=== PATIENT | male | born 1995 | race Caucasian/White ===

== ENCOUNTER 2017-03-10 11:11 | Emergency (ER) | payer MEDICAID ==
[2017-03-10 11:54] VITALS: BP 126/76
--- NOTE | 2017-03-10 11:57 | ED Physician Chart ---
Chief Complaint/HPI - Patient Information Date Seen:: 03/10/17 Time Seen:: 11:42 Chief Complaint:: head lac History of Present Illness:: 1 hr ago was at home and a metal pole fell and hit top of head. no loc. no JOE now. no n/v/d. no vision change. no neck pain. ok rom neck wo pain. has lac at parietal/occiput region. unsure of last dtet but did [place] up [place] and attended school [place]. Allergies:: Allergies Allergy/AdvReac Type Severity Reaction Status Date / Time No Known Allergies Allergy Verified 03/10/17 11:20 Vitals:: Vital Signs - 8 hr 03/10/17 03/10/17 11:25 11:26 Temp 98.5 F HR 74 RR 16 BP 126/76 126/76 O2 Sat % 98 Historian:: Patient Review of Systems - Review of Systems General/Constitutional: No fever, No chills, No weight loss, No weakness, No diaphoresis, No edema, No loss of appetite Skin: No skin lesions, No rash, No bruising Head: No headache, No light-headedness Eyes: No loss of vision, No pain, No diplopia ENT: No earache, No nasal drainage, No sore throat, No tinnitus Neck: No neck pain, No swelling, No thyromegaly, No stiffness, No mass noted Cardio Vascular: No chest pain, No palpitations, No PND, No orthopnea, No edema Pulmonary: No SOB, No cough, No sputum, No wheezing GI: No nausea, No vomiting, No diarrhea, No pain, No melena, No hematochezia, No constipation, No hematemesis G/U: No dysuria, No frequency, No hematuria Musculoskeletal: No bone or joint pain, No back pain, No muscle pain Endocrine: No polyuria, No polydipsia Psychiatric: No prior psych history, No depression, No anxiety, No suicidal ideation Hematopoietic: No bruising, No lymphadenopathy Allergic/Immuno: No urticaria, No angioedema Neurological: No syncope, No focal symptoms, No weakness, No paresthesia, No headache, No seizure, No dizziness, No confusion, No vertigo Past Medical History - Past Medical History Past Medical History: No significant medical hx Social History: No Alcohol Medication: Reviewed Family Medical History - Family Member Mother Hx Family Cancer: No Hx Family Congestive Heart Failure: No Hx Family Diabetes: No Hx Family Seizures: No Hx Family AIDS: No Hx Family HIV: No Hx Family COPD: No Hx Family Hepatitis: No Hx Family Psychiatric Problems: No Physical Exam - Physical Examination General/Constitutional: Awake, Well-developed, well-nourished, Alert, No distress, GCS 15, Non-toxic appearing, Ambulatory Other Head comments:: lac at parietal/occipital jxn about 4 cm horrizontal shallow lac w no contamination nor deep structure injury. no skull stepoff. Eyes: Lids, conjuctiva normal, PERRL, EOMI Skin: Nl inspection, No rash, No skin lesions, No ecchymosis, Well hydrated, No lymphadenopathy ENMT: External ears, nose nl, Nasal exam nl, Lips, teeth, gums nl Neck: Nontender, Full ROM w/o pain, No JVD, No nuchal rigidity, No bruit, No mass, No stridor Respiratory: Nl effort/Exclusion, Clear to Auscultation, No Wheeze/Rhonchi/Rales Cardio Vascular: RRR, No murmur, gallop, rubs, NL S1 S2 GI: No tenderness/rebounding/guarding, No organomegaly, No hernia, Normal BS's, Nondistended, No mass/bruits, No McBurney tenderness : No CVA tenderness Extremities: No tenderness or effusion, Full ROM, normal strength in all extremities, No edema, Normal digits & nails Neuro/Psych: Alert/oriented, DTR's symmetric, Normal sensory exam, Normal motor strength, Judgement/insight normal, Mood normal, Normal gait, No focal deficits Misc: normal gait, Normal back, No paraspinal tenderness Assessment Location:: ocipital/parietaL JXN Laceration Type:: Simple Wound Length: 4 cm Prep/Irrigation:: betadyne/ ns irrigation. Inspection: No dirt/debris Local Anesthetic:: lido /epi 2pct. 5ml. local inj [place] #: 9 Comments:: good wound aproximation and closure ED Septic Shock - . Is Septic Shock (SBP<90, OR Lactate>4 mmol\L) present?: No - <6hrs of presentation: Vital Signs: Vital Signs - 8 hr 03/10/17 03/10/17 11:25 11:26 Temp 98.5 F HR 74 RR 16 BP 126/76 126/76 O2 Sat % 98 Reassessment (Disposition) - Reassessment Reassessment:: pt given wound care instr. eliseo out in 1 week. wash daily and apply bacitracin. head pinj precautions/neuro obs d/w pt and gf. pt to double check w pmd about d-tet status.(should be utd by related demographics) Reassessment Condition:: Improved - Diagnosis Diagnosis:: 4cm scalp lac s/p eliseo in ED - Aftercare/Follow up Instructions Aftercare/Follow-Up Instructions:: Counseled pt regarding lab results/diagnosis & need follow up - Patient Disposition Discharge/Transfer:: Home Condition at Disposition:: Improved ED Discharge Plan - Patient Disposition Accepting Physician: Jon Colmenares [Active] - 1-3 Days
== END 2017-03-10 12:10 | disposition home or self-care (01) ==
LOC: ER 11:11
DX: S01.01XA Laceration without foreign body of scalp, initial encounter (principal); W20.8XXA Other cause of strike by thrown, projected or falling object, initial encounter; Y93.89 Activity, other specified; Y92.018 Other place in single-family (private) house as the place of occurrence of the external cause; Y99.8 Other external cause status
CPT/HCPCS: 12002; A4217; X6444; Z7502; Z7610

== ENCOUNTER 2017-03-24 11:10 | Emergency (ER) | payer MEDICAID ==
--- NOTE | 2017-03-24 12:06 | ED Physician Chart ---
Chief Complaint/HPI - Patient Information Date Seen:: 03/24/17 Time Seen:: 12:03 Chief Complaint:: staple removal History of Present Illness:: pt was here 1 wk ago for wound on occiput. has healed well. no fever. no drainage. no confusion. school goes well. no weak/numb. no visual changes. Allergies:: Allergies Allergy/AdvReac Type Severity Reaction Status Date / Time No Known Allergies Allergy Verified 03/10/17 11:20 Vitals:: Vital Signs - 8 hr 03/24/17 03/24/17 11:19 11:54 Temp 97.9 F HR 69 67 RR 17 16 BP 124/69 115/70 O2 Sat % 96 98 Historian:: Patient Review of Systems - Review of Systems General/Constitutional: No fever, No chills, No weight loss, No weakness, No diaphoresis, No edema, No loss of appetite Skin: No skin lesions, No rash, No bruising Head: No headache, No light-headedness Eyes: No loss of vision, No pain, No diplopia ENT: No earache, No nasal drainage, No sore throat, No tinnitus Neck: No neck pain, No swelling, No thyromegaly, No stiffness, No mass noted Cardio Vascular: No chest pain, No palpitations, No PND, No orthopnea, No edema Pulmonary: No SOB, No cough, No sputum, No wheezing GI: No nausea, No vomiting, No diarrhea, No pain, No melena, No hematochezia, No constipation, No hematemesis G/U: No dysuria, No frequency, No hematuria Musculoskeletal: No bone or joint pain, No back pain, No muscle pain Endocrine: No polyuria, No polydipsia Psychiatric: No prior psych history, No depression, No anxiety, No suicidal ideation Hematopoietic: No bruising, No lymphadenopathy Allergic/Immuno: No urticaria, No angioedema Neurological: No syncope, No focal symptoms, No weakness, No paresthesia, No headache, No seizure, No dizziness, No confusion, No vertigo Past Medical History - Past Medical History Past Medical History: No significant medical hx 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 well granulating. eliseo in place. neck nontndr. good rom. Eyes: Lids, conjuctiva normal, PERRL, EOMI Skin: Nl inspection, No rash, No skin lesions, No ecchymosis, Well hydrated, No lymphadenopathy ENMT: External ears, nose nl, Nasal exam nl, Lips, teeth, gums nl Neck: Nontender, Full ROM w/o pain, No JVD, No nuchal rigidity, No bruit, No mass, No stridor Respiratory: Nl effort/Exclusion, Clear to Auscultation, No Wheeze/Rhonchi/Rales Cardio Vascular: RRR, No murmur, gallop, rubs, NL S1 S2 GI: No tenderness/rebounding/guarding, No organomegaly, No hernia, Normal BS's, Nondistended, No mass/bruits, No McBurney tenderness : No CVA tenderness Extremities: No tenderness or effusion, Full ROM, normal strength in all extremities, No edema, Normal digits & nails Neuro/Psych: Alert/oriented, DTR's symmetric, Normal sensory exam, Normal motor strength, Judgement/insight normal, Mood normal, Normal gait, No focal deficits Misc: normal gait, Normal back, No paraspinal tenderness ED Septic Shock - . Is Septic Shock (SBP<90, OR Lactate>4 mmol\L) present?: No - <6hrs of presentation: Vital Signs: Vital Signs - 8 hr 03/24/17 03/24/17 11:19 11:54 Temp 97.9 F HR 69 67 RR 17 16 BP 124/69 115/70 O2 Sat % 96 98 Reassessment (Disposition) - Reassessment Reassessment:: eliseo removed (aprox 8 total) after etoh cleanser. no complication,. dc instr given and return if any infection of neuro change or other problem. bacitracin use advised. Reassessment Condition:: Improved - Diagnosis Diagnosis:: eliseo removal from scalp - Aftercare/Follow up Instructions Aftercare/Follow-Up Instructions:: Counseled pt regarding lab results/diagnosis & need follow up - Patient Disposition Discharge/Transfer:: Home Condition at Disposition:: Improved ED Discharge Plan - Patient Disposition Admit/Discharge/Transfer: PT DISCHARGED HOME Condition at Disposition: Stable Instructions: Staple Removal, Care After Accepting Physician: Xochilt No [Active] - 1-3 Days
== END 2017-03-24 12:00 | disposition home or self-care (01) ==
LOC: ER 11:10
DX: T81.89XD Other complications of procedures, not elsewhere classified, subsequent encounter (principal)

== ENCOUNTER 2018-01-11 23:26 | Emergency (ER) | payer MEDICAID ==
[2018-01-12] MEDS ORDERED: Hydrocodone/APAP 10 mg/325 mg Tab PO STA (00:04)
[2018-01-12] MEDS ORDERED: Guaifenesin DM 10 ML UDC PO ONE (00:05)
[2018-01-12] MEDS ORDERED: Levofloxacin 500mg/100mL 500 MG/100 ML BAG IV ONE (00:06)
[2018-01-12] MEDS ORDERED: Guaifenesin DM 10 ML UDC ONE (00:12)
[2018-01-12] MEDS ORDERED: Hydrocodone/APAP 10 mg/325 mg Tab ONE (00:15)
[2018-01-12 00:23] LABS: BASOPHILE ABSOLUTE 0.6 Th/cumm (0-0.2); HEMATOCRIT 49.1 % (41.0-60); HEMOGLOBIN 16.6 gm/dL (12-16); LYMPHOCYTE ABSOLUTE 0.3 Th/cmm (1.5-3.0); MEAN CELL VOLUME 83.2 fl (80-99); MEAN CORPUSCULAR HEMOGLOBIN 28.2 pg (26.0-30.0); MEAN CORPUSCULAR HGB CONC 33.9 pg (28.0-36.0); MEAN PLATELET VOLUME 7.2 fl; MONOCYTE ABSOLUTE 0.3 Th/cmm (0.3-1.0); NEUTROPHILE ABSOLUTE 11.1 Th/cmm (1.8-8.0); PLATELET COUNT 204 Th/cmm (150-400); RED CELL DISTRIBUTION WIDTH 12.2 % (11.5-20.0)
[2018-01-12 00:44] LABS: BUN - UREA NITROGEN 11 mg/dL (7-25); CALCIUM SERUM 9.7 mg/dL (8.6-10.3); CARBON DIOXIDE 25.5 mEq/L (21.0-31.0); CHLORIDE 97 mEq/L (98-107); CREATININE - SERUM 1.1 mg/dL (0.7-1.3); GFR AFRICAN-AMERICAN > 60.0 ml/min (>90); GFR NON AFRICAN-AMERICAN > 60.0 ml/min; GLUCOSE 153 mg/dL (70-105); POTASSIUM SERUM 3.5 mEq/L (3.5-5.1); SODIUM SERUM 134 mEq/L (136-145)
[2018-01-12 00:46] LABS: WHITE BLOOD COUNT 12.3 Th/cmm (4.8-10.8)
[2018-01-12 00:46] LABS: INF A SCREEN NEG FOR INF A
[2018-01-12 00:47] LABS: INF B SCREEN POS FOR INF B
[2018-01-12 00:52] LABS: BAND NEUTROPHILE 11 % (0-10); LYMPHOCYTE 5 % (20-50); MONOCYTE 6 % (2-10); NEUTROPHILS 78 % (40-80); PLATELET ESTIMATE ADEQUATE (NORMAL)
--- NOTE | 2018-01-12 00:53 | ER Physician Documentation ---
DATE OF SERVICE: 01/11/2018 The patient was seen on 0005 hours. The patient complained of headache, nausea, vomiting and had one diarrhea today. He is having symptoms for 3 days. He said he is having flu, so he came over there. He thought he would get better. He took [id number] medication for cold, Tylenol. His girlfriend was with him. Otherwise, no significant complaints. HISTORY OF PRESENT ILLNESS: The patient's history is essentially the same that he had flu-like symptoms, runny nose, headache, back pain and not feeling good. Looks sick to me. The patient's past history is essentially; the patient had some injury on the head and the patient had 7-8 eliseo that were removed. Otherwise, no major illnesses. REVIEW OF SYSTEMS: Review of system essentially benign and negative. EYES: No history of double vision, blurring, blindness. CENTRAL NERVOUS SYSTEM: No history of TIA, stroke, encephalitis, meningitis. PULMONARY: No history of pneumonia, TB, pulmonary embolism, COPD, emphysema, bronchitis. BONES AND JOINTS: No significant complaints. ENDOCRINE: No diabetes mellitus, no hyper or hypothyroidism. GASTROINTESTINAL: The patient has some nausea and little bit of vomiting and the patient had one diarrhea. GENITOURINARY: No burning, frequency, dysuria. HEMATOLOGY/ONCOLOGY: The patient never had any cancer. The patient's liver and spleen had no history of any liver disease. USE AND ABUSE OF THE DRUGS: None. He does not smoke or drink. PERSONAL HISTORY: He is not . He is studying [employer] and he is also working according to him. His girlfriend was with him. The patient has seven other siblings, 4 brothers and 3 sisters. FAMILY HISTORY: Benign and negative. PHYSICAL EXAMINATION: GENERAL: The patient appears to be awake and alert and oriented, not in any acute cardiorespiratory distress. Conjunctivae pink. Sclerae white. HEENT: Normal. Jugular venous pressure is normal. There is no cyanosis, petechia, ecchymosis. The patient appears to be sick looking. He appears to be like having in a miserable status. NECK: Supple. No meningeal signs are noted. No edema, no cyanosis, no petechia. No ecchymosis. CHEST: Clear. Trachea being central. Fairly good air entry in both lungs without any rales, rhonchi, or bronchial breathing. ABDOMEN: Soft, benign, negative. Liver and spleen not enlarged. No free fluid in the abdominal cavity. Central nervous systems is grossly within normal limits. HEART: Normal heart sounds. PMI is located in the fifth intercostal space in the midclavicular line. S1, S2 are normal. Fourth heart sound is absent. Third heart sound is absent. No abnormal murmur, click or rub. CLINICAL IMPRESSION: It seems that the patient has flu-like symptoms, so clinical diagnosis seems to be like influenza related or other. It looks like currently H3N2 virus flu is going around and this is one of the deadly or serious kind of different kind of virus which usually is not working by the other flu vaccine. Will check with the nasal swab for that and give the patient supportive care with hydrocodone and we will give some Levaquin, hydrocodone, also add some Tylenol, so that will take care it. Guaifenesin that is Robitussin will be given and if flu is not detected, we will send the patient home with some oral antibiotics and supportive care and rest for at least 3-4 days. I will tell the nurse to give a slip for rest for 4 days, and I think by that time she should be getting better. The patient has flu. We will give the patient Tamiflu 75 mg twice a day and off for 7 days. Other diagnosis, the patient has a history of head injury in the past. The patient's flu-like symptoms were for 3 days and all the symptoms of fever and chills and dry cough and weakness are all secondary to looks like flu, will wait to get the results. The triage nurse did the triage and found her temperature to be 98.6, pulse of 103, respirations 20, blood pressure 103/49, saturation 97%. Height is 5 feet 11 inches, weight 179 pounds. His aunt has cancer and the patient took Tylenol around 1900 hours. This report of admission ER evaluation and treatment finished at 0022 hours, that means half an hour to examine and dictate and then will wait for the lab results and things to come back and then we will make further addendum report. JOB# [id number]
--- NOTE | 2018-01-12 10:47 | ER Physician Documentation ---
DATE OF SERVICE: ADDENDUM A 22-year-old male patient who came with clinical evidence of flu-like symptoms, hence nasal swab was sent for flu virus detection and it was negative for influenza A, but positive for influenza B. At the present moment, the virus according to the information from [facility] is the virus currently that is roaming around or already spreading widespread flu infection is H3N2 influenza virus was found to be positive, the influenza B virus was found to be positive and I suspect that this may be the strain of the bug is H3N2 influenza, hence the patient is discharged home on Tamiflu 30 mg p.o. twice daily for 5 days and the patient should follow up with his doctor if he does not get better in a couple of days, the patient might need a slightly higher dose, but I think at the present moment, this should work it out and for minor aches and pains, he can take some Tylenol and he should be given rest for about 5 days. Our nurse will give the prescription for that, rest for 5 days. No going to work for 5 days and rest and drink some hot fluids, chicken soup, hot soup and not to drink cold stuff. Final diagnosis is influenza B virus, most likely H3N2 virus infection causing influenza on this patient. JOB# [id number]
== END 2018-01-12 01:40 | disposition home or self-care (01) ==
LOC: ER 23:26
DX: J11.1 Influenza due to unidentified influenza virus with other respiratory manifestations (principal)
CPT/HCPCS: 99284; 36415; 83605; 87804 ×2; 85025; 80048; 85007; 85027; Q0162; Z7502